=== PATIENT | female | born 1980 | race African-American/Black ===

== ENCOUNTER 2016-12-21 13:03 | Emergency (ER) | payer MEDICARE, OTHER ==
[~2016-12-21] VITALS: Ht 172.7 cm; Wt 63.5 kg
[~2016-12-21 13:03] MED LIST: HYDR-971 PO; METR500T PO
[2016-12-21 13:10] VITALS: BP 106/65
[2016-12-21] MEDS ORDERED: predniSONE 20 MG TABLET PO ONE (14:15)
[2016-12-21] MEDS ORDERED: IPRATRPIUM/ALBUTEROL 0.5/2.5MG 3 ML NEBU. NEB ONE (14:15)
[2016-12-21] MEDS ORDERED: BENZONATATE 100 MG CAPSULE. PO ONE (14:15)
[2016-12-21] MEDS ORDERED: BENZ100C PO (14:37)
[2016-12-21] MEDS ORDERED: PROAIR RESPICL90 MCG IH (14:37)
[2016-12-21] MEDS ORDERED: PRED50TA PO (14:37)
--- NOTE | 2016-12-21 14:37 | PHYS DOC ---
Past Medical History Past Medical History: No Pertinent History Past Surgical History: , Tubal ligation Alcohol Use: Occasionally Drug Use: None Adult General Chief Complaint Chief Complaint: COUGH HPI HPI Patient is a 36 year old female with a history of smoking who presents today with a productive cough for 1 week. Patient denies any fever. Review of Systems Review of Systems Constitutional: Denies fever or chills [] Eyes: Denies change in visual acuity, redness, or eye pain [] HENT: Denies nasal congestion or sore throat [] Respiratory: Productive cough Cardiovascular: No additional information not addressed in HPI [] GI: Denies abdominal pain, nausea, vomiting, bloody stools or diarrhea [] : Denies dysuria or hematuria [] Musculoskeletal: Denies back pain or joint pain [] Integument: Denies rash or skin lesions [] Neurologic: Denies headache, focal weakness or sensory changes [] Endocrine: Denies polyuria or polydipsia [] Current Medications Current Medications Current Medications Medications (Trade) Dose Ordered Sig/Jose Ramon Start Time Stop Time Status Last Admin Dose Admin Albuterol/ Ipratropium (Duoneb) 3 ml 1X ONCE 12/21/16 14:15 12/21/16 14:16 DC Benzonatate (Tessalon Perle) 100 mg 1X ONCE 12/21/16 14:15 12/21/16 14:16 DC 12/21/16 13:59 100 MG Prednisone (Prednisone) 60 mg 1X ONCE 12/21/16 14:15 12/21/16 14:16 DC 12/21/16 13:59 60 MG Allergies Allergies Allergies Coded Allergies Type Severity Reaction Last Updated Verified No Known Drug Allergies 04/24/13 No Physical Exam Physical Exam Constitutional: Well developed, well nourished, no acute distress, non-toxic appearance. [] HENT: Normocephalic, atraumatic, bilateral external ears normal, oropharynx moist, no oral exudates, nose normal. [] Eyes: PERRLA, EOMI, conjunctiva normal, no discharge. [] Neck: Normal range of motion, no tenderness, supple, no stridor. [] Cardiovascular:Heart rate regular rhythm, no murmur [] Lungs & Thorax: Diffuse wheezing to posterior lung bases. Abdomen: Bowel sounds normal, soft, no tenderness, no masses, no pulsatile masses. [] Skin: Warm, dry, no erythema, no rash. [] Back: No tenderness, no CVA tenderness. [] Extremities: No tenderness, no cyanosis, no clubbing, ROM intact, no edema. [] Neurologic: Alert and oriented X 3, normal motor function, normal sensory function, no focal deficits noted. [] Psychologic: Affect normal, judgement normal, mood normal. [] Current Patient Data Vital Signs Vital Signs Date Time Temp Pulse Resp B/P (MAP) Pulse Ox O2 Delivery O2 Flow Rate FiO2 12/21/16 14:12 100 12/21/16 13:10 98.3 74 18 106/65 (79) Room Air 98.3 Lab Values Laboratory Tests Test 12/21/16 12:43 POC Urine HCG, Qualitative Hcg negative (Negative) EKG EKG [] Radiology/Procedures Radiology/Procedures [] Course & Med Decision Making Course & Med Decision Making Pertinent Labs and Imaging studies reviewed. (See chart for details) Patient is in the ED with a productive cough for 1 week. She has history of smoking. She was wheezing on arrival to the ED. We gave her a breathing treatment which cleared her lungs. We encouraged her to consider smoking cessation. She was treated for bronchitis with prednisone and albuterol inhaler and Tessalon Perles. We provided instructions to follow-up with her PCP in the next 1-2 weeks. Dragon Disclaimer Dragon Disclaimer This electronic medical record was generated, in whole or in part, using a voice recognition dictation system. Departure Departure Impression: Primary Impression: Acute bronchitis Additional Impression: Smoking addiction Disposition: 01 HOME, SELF-CARE Condition: STABLE Referrals: AMBAR CAMPA MD (PCP) Follow-up with your doctor in one week Patient Instructions: Acute Bronchitis, Smoking Cessation Additional Instructions: You were seen for acute bronchitis. We highly recommend you consider smoking cessation. Take the prescribed medicines as ordered. Follow-up with your own primary care doctor in the next 1-2 weeks. Scripts Benzonatate (TESSALON PERLE) 100 Mg Capsule 1 CAP PO TID, #30 CAP Prov: MUTUNGA,SUGAR DIAGRAMMER AND SEAMER 12/21/16 Albuterol Sulfate (Proair Respiclick) 90 Mcg Aer.pow.ba 1 PUFF IH PRN Q6HRS Y for SHORTNESS OF BREATH, #1 INHALER Prov: MUTUNGA,[employer]ER 12/21/16 Prednisone (PREDNISONE) 50 Mg Tablet 1 TAB PO DAILY, #4 TAB Prov: SUGAR FRAIRE APRN 12/21/16 Problem Qualifiers Primary Impression: Acute bronchitis Bronchitis organism: unspecified organism Qualified Codes: J20.9 - Acute bronchitis, unspecified SUGAR FRAIRE APRN Dec 21, 2016 14:37
== END 2016-12-21 14:39 | disposition home or self-care (01) ==
LOC: ER 13:03
DX: J20.9 Acute bronchitis, unspecified (principal); F17.200 Nicotine dependence, unspecified, uncomplicated
CPT/HCPCS: 81025; 94250; 94640; 99283; J7512; J7620